=== PATIENT | female | born 1995 | race Two or more races ===

== ENCOUNTER 2018-10-26 17:48 | Inpatient (IN) | payer MEDICARE, MEDICAID ==
[2018-10-26] MEDS: SOD CHLORIDE 0.9% 500 ML IV (18:47)
[2018-10-26] MEDS: METHYLPREDNISOLONE 125 MG INJ IV (18:50)
[2018-10-26 18:59] LABS: B-TYPE NATRIURETIC PEPTIDE 72 PG/ML (0-125)
[2018-10-26] MEDS: PIPER-TAZO 3.375 GM IV (PMX) 100 ML IVPB ×2 (19:38→23:30)
[2018-10-26 20:04] LABS: WHITE BLOOD COUNT 9.8 10^3/ul (4.8-10.8)
[2018-10-26 20:04] LABS: ABNORMAL IP MESSAGE 1; HEMOGLOBIN 12.9 g/dl (12.0-16.0); MEAN CORPUSCULAR HEMOGLOBIN 22.7 pg (29.0-33.0); MEAN CORPUSCULAR HGB CONC 29.3 g/dl (32.0-37.0); MEAN CORPUSCULAR VOLUME 77.5 fl (82.0-101.0); MEAN PLATELET VOLUME 11.5 fl (7.4-10.4); PLATELET COUNT 414 10^3/UL (140-415); RED BLOOD COUNT 5.68 10^6/ul (4.20-5.40); RED CELL DISTRIBUTION WIDTH 19.8 % (11.5-14.5)
[2018-10-26 20:05] LABS: POSITIVE DIFF @See below
[2018-10-26 20:06] LABS: ADD MAN DIFF? YES
[2018-10-26 20:08] LABS: ALANINE AMINOTRANSFERASE 39 IU/L (13-69); ALBUMIN 4.3 g/dl (3.3-4.9); ALBUMIN/GLOBULIN RATIO 1.19; ALKALINE PHOSPHATASE 146 IU/L (42-121); ANION GAP 12 (5-13); ASPARTATE AMINO TRANSFERASE 41 IU/L (15-46); BLOOD UREA NITROGEN 11 mg/dl (7-20); CALCIUM 9.5 mg/dl (8.4-10.2); CARBON DIOXIDE 28 mmol/L (21-31); CHLORIDE 92 mmol/L (97-110); CREATININE 0.15 mg/dl (0.44-1.00); Estimated GFR > 60 mL/min (>60); GLUCOSE 241 mg/dl (70-220); LIPASE 118 U/L (23-300); POTASSIUM 4.8 mmol/L (3.5-5.1); SODIUM 132 mmol/L (135-144); TOTAL PROTEIN 7.9 g/dl (6.1-8.1)
[2018-10-26 20:19] LABS: TROPONIN-I < 0.012 ng/ml (0.000-0.120)
[2018-10-26 20:28] LABS: LACTIC ACID 2.5 mmol/L (0.5-2.0)
[2018-10-26] MEDS ORDERED: VANCOMYCIN IV PER PHARMACY XX (20:30)
[2018-10-26] MEDS ORDERED: morphine 2 MG INJ IV (20:30)
[2018-10-26] MEDS ORDERED: ONDANSETRON 4 MG INJ IV (20:30)
[2018-10-26] MEDS ORDERED: NACL 0.9% 3 ML SYG IV (20:30)
[2018-10-26] MEDS ORDERED: HYDROCODONE/APAP (5/325) TAB PO (20:30)
[2018-10-26 20:45] LABS: BAND NEUTROPHILS #M 1.8 10^3/ul (0.0-0.6); BAND NEUTROPHILS % (M) 19 % (0-4); GIANT THROMBO% (M) 1 % (0-0); LYMPHOCYTES #M 0.3 10^3/ul (0.8-2.9); LYMPHOCYTES % (M) 4 % (15-51); MONOCYTE #M 0.1 10^3/ul (0.3-0.9); MONOCYTES % (M) 2 % (0-11); PLATELET ESTIMATE NORMAL; SEG NEUT #M 7.5 10^3/ul (1.6-7.5); SEGMENTED NEUTROPHILS (M) % 75 % (39-77); SMUDGE%M 1 % (0-0)
[2018-10-26] MEDS: ALBUTEROL 0.5% (NEB) 2.5 MG/0.5 ML AMP INH (21:18)
[2018-10-26] MEDS: IPRATROPIUM (NEB) 0.5 MG/2.5 ML AMP INH (21:18)
[2018-10-26] MEDS: ALBUTEROL/IPRATROPIUM (NEB) 3 ML AMP HHN (21:33)
[2018-10-26] MEDS: BUDESONIDE (NEB) 0.5MG/2ML AMP HHN (21:56)
[2018-10-26] MEDS: SOD CHLORIDE 0.9% 1,000 ML IV (23:29)
[2018-10-26 23:36] LABS: AADO2 Arterial 94.9 mmHg (7.0-24.0); Allen Test ACCEPTAB; Arterial Base Excess 4.7 mmol/L (-3.0-3); Arterial COHb 0.4 % (0.0-3.0); Arterial Fraction of Oxyhgb 94.2 % (93.0-99.0); Arterial HCO3 28.6 mmol/L (22.0-26.0); Arterial MetHb 0.4 % (0.0-1.5); Arterial pCO2 39.9 mmhg (35-45); MODE VENT - PC; Site Right Radial
[2018-10-27] MEDS: ALBUTEROL/IPRATROPIUM (NEB) 3 ML AMP HHN ×5 (00:40→19:57)
[2018-10-27 05:29] LABS: ADD MAN DIFF? NO
[2018-10-27] MEDS: PIPER-TAZO 3.375 GM IV (PMX) 100 ML IVPB ×3 (05:34→17:29)
[2018-10-27 05:35] LABS: BASOPHILS % 0.3 % (0.0-2.0); HEMATOCRIT 39.1 % (37.0-47.0); HEMOGLOBIN 11.6 g/dl (12.0-16.0); LYMPHOCYTES # 1.1 10^3/ul (0.8-2.9); LYMPHOCYTES % 15.7 % (15.0-51.0); MEAN CORPUSCULAR HEMOGLOBIN 22.8 pg (29.0-33.0); MEAN CORPUSCULAR HGB CONC 29.7 g/dl (32.0-37.0); MEAN CORPUSCULAR VOLUME 76.8 fl (82.0-101.0); MEAN PLATELET VOLUME 11.3 fl (7.4-10.4); MONOCYTE # 0.6 10^3/ul (0.3-0.9); MONOCYTES % 7.9 % (0.0-11.0); NEUTROPHIL # 5.5 10^3/ul (1.6-7.5); NEUTROPHILS % 75.5 % (39.0-77.0); PLATELET COUNT 362 10^3/UL (140-415); RED BLOOD COUNT 5.09 10^6/ul (4.20-5.40); RED CELL DISTRIBUTION WIDTH 19.7 % (11.5-14.5)
[2018-10-27 05:35] LABS: WHITE BLOOD COUNT 7.3 10^3/ul (4.8-10.8)
[2018-10-27 05:48] LABS: ALANINE AMINOTRANSFERASE 36 IU/L (13-69); ALBUMIN 3.8 g/dl (3.3-4.9); ALBUMIN/GLOBULIN RATIO 1.15; ALKALINE PHOSPHATASE 133 IU/L (42-121); ANION GAP 11 (5-13); ASPARTATE AMINO TRANSFERASE 38 IU/L (15-46); BLOOD UREA NITROGEN 11 mg/dl (7-20); CALCIUM 9.2 mg/dl (8.4-10.2); CARBON DIOXIDE 29 mmol/L (21-31); CHLORIDE 105 mmol/L (97-110); GLUCOSE 112 mg/dl (70-220); POTASSIUM 3.6 mmol/L (3.5-5.1); SODIUM 145 mmol/L (135-144); TOTAL PROTEIN 7.1 g/dl (6.1-8.1)
[2018-10-27 05:57] LABS: CREATININE < 0.15 mg/dl (0.44-1.00); Estimated GFR > 60 mL/min (>60)
[2018-10-27] MEDS ORDERED: PANTOPRAZOLE 40 MG INJ IV (06:00)
[2018-10-27 07:24] LABS: HEMOGLOBIN A1C 5.5 % (0-5.9)
[2018-10-27] MEDS: BUDESONIDE (NEB) 0.5MG/2ML AMP HHN ×2 (08:12→19:57)
[2018-10-27] MEDS: ENOXAPARIN 40 MG/0.4 ML SYG SC (09:00)
[2018-10-27] MEDS: SOD CHLORIDE 0.9% 1,000 ML IV (09:01)
[2018-10-27] MEDS: morphine 2 MG INJ IV (16:58)
[2018-10-27] MEDS: hydrALAzine 20 MG INJ IV (17:03)
[2018-10-27] MEDS: FUROSEMIDE 40 MG INJ IV (17:03)
[2018-10-28] MEDS: PIPER-TAZO 3.375 GM IV (PMX) 100 ML IVPB ×3 (00:26→12:00)
[2018-10-28] MEDS: ACETAMINOPHEN 325 MG TAB PO (01:05)
[2018-10-28] MEDS: ALBUTEROL/IPRATROPIUM (NEB) 3 ML AMP HHN ×4 (01:41→12:50)
[2018-10-28] MEDS: SOD CHLORIDE 0.9% 1,000 ML IV (03:36)
[2018-10-28] MEDS: BUDESONIDE (NEB) 0.5MG/2ML AMP HHN (09:00)
[2018-10-28] MEDS: ENOXAPARIN 40 MG/0.4 ML SYG SC (09:00)
[2018-10-28] MEDS: ACETAMINOPHEN 650MG/20.3ML CUP GTB (09:32)
== END 2018-10-28 13:20 | disposition home health service (06) | DRG 208 ==
LOC: E/R 17:48 → ICU 20:24
PROVIDERS: Internal Medicine
PROC: 5A1945Z Respiratory Ventilation, 24-96 Consecutive Hours (ICD-10-PCS; principal; 2018-10-26)
DX: J18.9 Pneumonia, unspecified organism (principal); J96.22 Acute and chronic respiratory failure with hypercapnia; J96.11 Chronic respiratory failure with hypoxia; Z99.11 Dependence on respirator [ventilator] status; G71.00 Muscular dystrophy, unspecified; Z93.0 Tracheostomy status
CPT/HCPCS: 36415; 36600; 71045; 80053; 82803; 83036; 83605; 83690; 83735; 83880; 84484; 85025; 87040; 87081; 87400; 94002; 94003; 94640; 94664; 96374; 99291-25